=== PATIENT | female | born 1955 | race Caucasian/White ===

== ENCOUNTER 2020-06-25 23:51 | Inpatient (IN) | payer BC, OTHER, SELFPAY ==
[~2020-06-25] VITALS: Ht 154.9 cm; Wt 76.7 kg
[~2020-06-25 23:51] MED LIST: ESCI5TAB PO; POTASSIUM
[2020-06-25 23:55] VITALS: BP_SYST 130
--- NOTE | 2020-06-26 00:40 | NUR ---
LAB IN AMBULANCE BAY DRAWING LABS ON PATIENT.
--- NOTE | 2020-06-26 00:47 | NUR ---
Patient to ER bed 1 to gown for evaluation. Side rails up. Report given to Liz ADMAS.
[2020-06-26 00:59] LABS: BASOPHILS % (AUTO) 0.8 % (0.0-2.0); EOSINOPHILS # (AUTO) 0.1 K/uL (0.0-0.4); HEMATOCRIT 38.8 % (36-48); LYMPHOCYTES # (AUTO) 0.7 K/uL (1.0-5.5); LYMPHOCYTES % (AUTO) 12.8 % (20.5-51.5); MEAN CORPUSCULAR HEMOGLOBIN 30 pg (27-31); MEAN CORPUSCULAR HGB CONC 33 % (32-36); MEAN CORPUSCULAR VOLUME 90 fL (79.0-98.0); MONOCYTES # (AUTO) 0.5 K/uL (0.0-1.0); MONOCYTES % (AUTO) 8.7 % (1.7-9.3); NEUTROPHILS # (AUTO) 4.1 K/uL (1.8-7.7); NEUTROPHILS % (AUTO) 75.7 % (40.0-70.0); PLATELET COUNT (AUTO) 185 K/uL (130-430); RED BLOOD CELL COUNT(AUTO) 4.31 MIL/uL (4.2-6.2); WHITE BLOOD COUNT (AUTO) 5.4 K/uL (4.8-10.8)
--- NOTE | 2020-06-26 01:00 | NUR ---
Pt biba c/o hip pain x today. Pt reports picking up books and falling to on her L hip but reports pain to her R hip. Pt is AAOX3, pt rates pain 10/11. Denies any allergies. Unable to recall past medical history. Inability to bare weight and move to L side. Pt denies LOC, head injury, dizzness or neck injury.
--- NOTE | 2020-06-26 01:02 | NUR ---
RICKIE CALLED TO GET UPDATE ON PATIENT. HE WOULD LIKE A CALL ONCE RESULTS ARE BACK AND PLAN OF CARE IS KNOWN. NUMBER IS
--- NOTE | 2020-06-26 01:10 | NUR ---
ER at bedside examining patient.
[2020-06-26 01:13] LABS: CALCIUM 8.3 mg/dL (8.4-11.0); CREATININE 1.31 mg/dL (0.55-1.30); POTASSIUM 3.4 mmol/L (3.5-5.1)
[2020-06-26] MEDS ORDERED: MORPHINE 4 MG/ML INJ. SYRINGE IVP ONE ×2 (01:15→03:45)
[2020-06-26 01:19] LABS: ALBUMIN 3.6 g/dL (3.4-4.8); TOTAL BILIRUBIN 0.3 mg/dL (0.0-1.0)
--- NOTE | 2020-06-26 02:05 | NUR ---
COVID SWAB OBTAINED AND SENT
--- NOTE | 2020-06-26 03:03 | NUR ---
Patient to ER bed 2. Side rails up.
--- NOTE | 2020-06-26 03:30 | NUR ---
As per Shorty, pt has hx of seizures, but have been well controlled.
--- NOTE | 2020-06-26 03:40 | NUR ---
Medication reconciliation completed with information provided by Shorty via phone call. Any prior medication reconciliation on file was reviewed and corrected.
[2020-06-26] MEDS ORDERED: NOR10 PO (03:41)
[2020-06-26] MEDS ORDERED: LAMO200T52 PO (03:41)
[2020-06-26] MEDS ORDERED: OXYQ1POW MC (03:41)
[2020-06-26] MEDS ORDERED: LEVE500T9 PO (03:41)
--- NOTE | 2020-06-26 03:45 | NUR ---
Patient will be admitted to care of Dr Nieves. Admitted to medical surgical unit. Will go to room 100b. Belongings list completed. Complete and up to date summary report printed. SBAR report to be given at bedside with opportunity for questions.
--- NOTE | 2020-06-26 03:55 | NUR ---
Report given to Pricilla ADAMS for continuation of care.
--- NOTE | 2020-06-26 04:05 | NUR ---
ADMISSION NOTE Received patient from ER via gurney. Patient admitted with diagnosis of RIGHT HIP FRACTURE. Patient is awake, alert, oriented X 3. Patient oriented to hospital room, call light, toileting, pain management and safety-teach back done. Patient informed that DEBORA will be nurse and that their room number is 100A. Personal belongings checked and Belongings List documented. Call light within reach.
[2020-06-26 04:14] VITALS: BP_SYST 111
[2020-06-26] MEDS ORDERED: MORPHINE 4 MG/ML INJ. SYRINGE IVP PRN (04:15)
[2020-06-26] MEDS ORDERED: traMADol HCL HCL 50 MG TABLET (ULTRAM) PO PRN (04:15)
[2020-06-26] MEDS ORDERED: OXYCODONE/ACETAMINOPHEN 5-325 TABLET PO PRN (04:15)
[2020-06-26] MEDS: MORPHINE 4 MG/ML INJ. SYRINGE IVP PRN ×4 (04:29→20:43)
--- NOTE | 2020-06-26 04:30 | NUR ---
pt.received via the er-dept.pt.presents s/p fall home +rt.hip fx.pt.requested medication pain.jennifer;carburizing furnace operator rn administered morphine:3mg ivp.to re-assess the efficacy of the pain medication per pain med protocol.cath placed per jennifer/ashok hunter.urine return manifested.pt.repositioned.pt.oriented to room:call light/telephone.placed w/in access of the pt.
[2020-06-26] MEDS: D5NS 1,000 ML IV SCH ×2 (05:13→22:41)
--- NOTE | 2020-06-26 06:00 | NUR ---
pt.assessed.pt.presents quiescent affect;calm,resting.i have initiated the maintenance iv fluids via peripheral access:location rt.hand. schumacher cath intact;patent urine content present.pt.repositioned.call light/telephone placed w/in access of the pt.
--- NOTE | 2020-06-26 07:19 | NUR ---
Nutrition Update Selwyn Scale 16 noted. Pt admitted for Hip fracture Diet: NPO BMI: 31.9 kg/m2 RD to follow per nutrition care standards.
[2020-06-26 08:10] VITALS: BP_SYST 113
--- NOTE | 2020-06-26 08:10 | NUR ---
AM NOTES PT IN BED. A/OX4. C/O OF RT HIP PAIN 02/10. WILL GIVE PAIN MED ORDERED.RES EVEN AND UNLABORED . NOT IN ACUTE DISTRESS. IV RT HAND20 PATENT. NO S/S OF INFILTRATION NOTED.IVF INFUSING WELL.SAFETY AND FALL PRECAUTIONS IN PLACE. SEIZURES PRECAUTIONS IN PLACE .POC DISCUSSED WITH PT VERBALIZED UNDERSTANDING. WILL CONITNUE TO MONITTOR
[2020-06-26] MEDS ORDERED: ONDANSETRON HCL 4 MG/2 ML VIAL IVP PRN (09:00)
[2020-06-26] MEDS ORDERED: ZOLPIDEM TARTRATE 5 MG TABLET PO PRN (09:00)
[2020-06-26] MEDS ORDERED: ACETAMINOPHEN 500 MG TABLET PO PRN (09:00)
[2020-06-26] MEDS ORDERED: HYDROcodone/ACETAMIN 7.5-325 MG TAB PO PRN (09:00)
[2020-06-26] MEDS ORDERED: ESCITALOPRAM OXALATE 10 MG TABLET PO SCH (09:15)
--- NOTE | 2020-06-26 09:19 | NUR ---
CONSULTATION CALLED REASON FOR CONSULTATION:HIP FRACTURE WAS CONSULT CALLED?Y PERSON WHO WAS NOTIFIED:SHEBA CONSULTING PHYSICIAN:ERICK WONG REGIONAL COORDINATOR SPECIALTY:ORTHO REGIONAL COORDINATOR PHONE NUMBER:[phone] REQUESTING PHYSICIAN:RUBIO OLIVARES
[2020-06-26 09:48] LABS: PROTHROMBIN TIME 10.4 SECS (9.5-12.5)
--- NOTE | 2020-06-26 09:54 | NUR ---
DR POTTER DENIED THE ORTHO CONSULT AND ASKED ME TO CALL DR CONI RODARTE INSTEAD. CALLED THE OFFICE OF DR RODARTE AND GAVE THE REASON FOR THE CONSULT AND MESSAGE OF DR POTTER. SPOKE TO DAMIR
[2020-06-26 09:59] LABS: CALCIUM 7.6 mg/dL (8.4-11.0); CREATININE 1.14 mg/dL (0.55-1.30); POTASSIUM 4.6 mmol/L (3.5-5.1); TOTAL BILIRUBIN 0.2 mg/dL (0.0-1.0)
[2020-06-26 10:00] LABS: ALBUMIN 3.3 g/dL (3.4-4.8); PHOSPHORUS 3.8 mg/dL (2.7-4.5); THYROID STIMULATING HORMONE 4.01 uIu/mL (0.36-3.74)
[2020-06-26] MEDS ORDERED: CITALOPRAM HYDROBROMIDE 20 MG TABLET PO ONE (10:15)
[2020-06-26] MEDS ORDERED: amLODIPine BESYLATE 10 MG TABLET PO ONE (10:15)
[2020-06-26 10:29] LABS: BILIRUBIN,URINE NEGATIVE (NEGATIVE); BLOOD, URINE NEGATIVE (NEGATIVE); CLARITY/URINE CLEAR (CLEAR); COLOR,URINE YELLOW (YELLOW); GLUCOSE,URINE NEGATIVE (NEGATIVE); KETONES,URINE NEGATIVE (NEGATIVE); LEUKOCYTE ESTERASE ,URINE NEGATIVE (NEGATIVE); NITRITE, URINE NEGATIVE (NEGATIVE); PH,URINE 5.5 (5.0-8.0); PROTEIN URINE NEGATIVE (NEGATIVE); UROBILINOGEN,URINE 0.2 (0.2-1.0)
[2020-06-26] MEDS ORDERED: levETIRAcetam 500 MG TABLET PO ONE (10:30)
--- NOTE | 2020-06-26 10:57 | NUR ---
PT order has been received. Chart review indicates patient is awaiting an Ortho consult. Therefore, Physical Therapy evaluation will be held until guidance from the Orthopedist.
[2020-06-26 11:11] LABS: BARBITURATE, URINE NEGATIVE (NEG <=200); BENZODIAZEPINE, URINE NEGATIVE (NEG <=150); CANNABINOID, URINE NEGATIVE (NEG <=50); COCAINE, URINE NEGATIVE (NEG <=150); METHAMPHETAMINES SCREEN,URINE NEGATIVE (NEG <=500); OPIATE, URINE POSITIVE (NEG <=100); PHENCYCLIDINE SCREEN,URINE NEGATIVE (NEG <=25); UR TRICYCLIC ANTIDEPRESSANTS NEGATIVE (NEG <=300); URINE AMPHETAMINE NEGATIVE (NEG <=500); URINE METHADONE NEGATIVE (NEG <=200); URINE OXYCODONE SCREEN NEGATIVE (NEG <=100); URINE PROPOXYPHENE SCREEN NEGATIVE (NEG <=300)
--- NOTE | 2020-06-26 11:19 | NUR ---
PAGED PAGED RUBIO OLIVARES AT [phone] SPOKE WITH EXCHANGE.
--- NOTE | 2020-06-26 11:52 | NUR ---
ROUNDS PT STABLE. DENIES ANY PAIN AT THIS TIME.IVF INFUSING WELL. SEEN BY DR GUILLERMO.
[2020-06-26] MEDS: PANTOPRAZOLE SODIUM 40 MG TAB PO SCH (11:54)
[2020-06-26 11:57] VITALS: BP_SYST 118
--- NOTE | 2020-06-26 13:56 | NUR ---
PAGED PAGED ROBYN OLIVARES AT [phone] SPOKE WITH TIM.
--- NOTE | 2020-06-26 14:13 | NUR ---
C/O OF PAIN PT C/O OF RT HIP PAIN 03/13. MEDICATED WITH MORPHINE ORDER SEE EMAR. IVF INFUIANG WELL NOT IN ACUTE DISTRESS. NEEDS ATTENDED
[2020-06-26 18:01] VITALS: BP_SYST 116
--- NOTE | 2020-06-26 19:00 | NUR ---
CLOSING NOTES PT STABLE . NOT IN ACUTE DISTRESS. IVF INFUSING WELL. WAITING FOR DR IRBY TO SEE PT.. REPORT GIVEN TO NIGHT NURSE
--- NOTE | 2020-06-26 19:20 | NUR ---
Opening note Received patient awake, AOx4, resting in bed, no distress. Non labored breathing on room air. IVF infusing via IV to right hand. Bed is locked in lowest position, side rails up 3x and bed alarm on.
[2020-06-26 20:00] VITALS: BP_SYST 141
[2020-06-26] MEDS: levETIRAcetam 500 MG TABLET PO SCH (20:39)
--- NOTE | 2020-06-26 20:39 | NUR ---
Morphine, Zofran Patient reporting severe pain 8/10 to right hip and knee. Administered Morphine for severe pain and Zofran for mild nausea as ordered. Due medication, Keppra tablet given with small sip of water. Call light w/in reach, will continue to monitor.
[2020-06-26] MEDS: DOCUSATE SODIUM 100 MG/10 ML UDC PO PRN (22:41)
--- NOTE | 2020-06-26 22:41 | NUR ---
IVF, Colace Patient's IVF bag empty and hung new bag of D5-NS and infusing as ordered at 60 ml/hr, no infiltration noted; tolerating. Patient reports last BM was Friday and though she is presently NPO, she is also receiving Morphine for pain; I explained side effects are constipation and she agreed to take a dose of Colace.
[2020-06-27 00:09] VITALS: BP_SYST 135
--- NOTE | 2020-06-27 00:10 | NUR ---
rounds VSS, presently is comfortable, she denies pain and doesn't want to reposition. She only wanted pillow on head adjusted and raised. Call light w/in reach, will continue to monitor.
--- NOTE | 2020-06-27 02:00 | NUR ---
Patient is awake She is light sleeper and presently denies pain and does not want pain med. She insists she is comfortable and refuses to reposition. Safety precautions maintained and call light w/in reach.
[2020-06-27] MEDS: MORPHINE 4 MG/ML INJ. SYRINGE IVP PRN (04:10)
--- NOTE | 2020-06-27 04:15 | NUR ---
c/o Patient reporting severe pain 7/10 to right hip, leg, and knee. Administered Morphine for severe pain ordered. She is requesting a sip of water and informed MD said can have small sip of water with med, though presently in nothing by mouth. I gave her oral care kit; to moisten mouth and she reports it helped. Call light w/in reach, will continue to monitor.
--- NOTE | 2020-06-27 06:30 | NUR ---
CLOSING NOTE Patient resting, awake, no distress, pain is tolerable. IVF infusing well. She requested cell phone and it is with her. Safety precautions in place. Needs met throughout shift, will endorse care.
--- NOTE | 2020-06-27 07:30 | NUR ---
OPENING NOTES: RECEIVED PATIENT FROM RAYON CONER NURSE. PATIENT IS AWAKE AND ALERT x4 LAYING DOWN IN BED. PATIENT IS TOLERATING OXYGEN ON ROOM AIR WITH NO SIGNS OF DISTRESS OR SHORTNESS OF BREATH NOTED. IV SITE IS PATENT WITH NO SIGNS OF INFILTRATION NOTED AND RUNNING FLUIDS ORDERED. PATIENT STATES SHE HAS PAIN 4/10 BUT IS TOLERABLE AT THE MOMENT. INFORMED PATIENT TO LET ME KNOW WHEN IT GETS TOO EXTREME. KULKARNI CATHETER INTACT AND DRAINING BY GRAVITY. PATIENT REFUSES TO TURN SIDE TO SIDE. PATIENT IN STABLE CONDITION. SAFETY, FALL, ASPIRATION, AND SEIZURE PRECAUTIONS ARE IN PLACE. BED LOCKED IN LOWEST POSITION WITH CALL LIGHT IN REACH. WILL CONTINUE TO MONITOR PATIENT FOR ANY CHANGES.
[2020-06-27 08:08] VITALS: BP_SYST 133
[2020-06-27 08:10] LABS: BASOPHILS % (AUTO) 0.3 % (0.0-2.0); EOSINOPHILS % (AUTO) 0.7 % (0.0-4.0); HEMATOCRIT 38.9 % (36-48); LYMPHOCYTES # (AUTO) 0.4 K/uL (1.0-5.5); LYMPHOCYTES % (AUTO) 6.6 % (20.5-51.5); MEAN CORPUSCULAR HEMOGLOBIN 30 pg (27-31); MEAN CORPUSCULAR HGB CONC 33 % (32-36); MEAN CORPUSCULAR VOLUME 90 fL (79.0-98.0); MONOCYTES # (AUTO) 0.7 K/uL (0.0-1.0); MONOCYTES % (AUTO) 10.4 % (1.7-9.3); NEUTROPHILS # (AUTO) 5.4 K/uL (1.8-7.7); PLATELET COUNT (AUTO) 180 K/uL (130-430); RED BLOOD CELL COUNT(AUTO) 4.34 MIL/uL (4.2-6.2); RED CELL DISTRIBUTION WIDTH 13.8 % (9.0-15.0); WHITE BLOOD COUNT (AUTO) 6.6 K/uL (4.8-10.8)
[2020-06-27 08:15] LABS: CALCIUM 7.7 mg/dL (8.4-11.0); CREATININE 0.81 mg/dL (0.55-1.30); POTASSIUM 3.3 mmol/L (3.5-5.1)
[2020-06-27] MEDS: levETIRAcetam 500 MG TABLET PO SCH ×2 (08:30→21:53)
[2020-06-27] MEDS: POTASSIUM CHLORIDE 20 MEQ TAB.PRT.SR PO PRN (08:30)
[2020-06-27] MEDS: HYDROXYCHLOROQUINE SULFATE 200 MG TABLET PO SCH (08:30)
[2020-06-27] MEDS: amLODIPine BESYLATE 10 MG TABLET PO SCH (08:32)
[2020-06-27] MEDS: CITALOPRAM HYDROBROMIDE 20 MG TABLET PO SCH (08:32)
[2020-06-27] MEDS: PANTOPRAZOLE SODIUM 40 MG TAB PO SCH (08:32)
--- NOTE | 2020-06-27 10:10 | NUR ---
RN ROUNDS: PATIENT IS AWAKE AND ALERT x4 LAYING DOWN IN BED. PATIENT IS TOLERATING OXYGEN ON ROOM AIR WITH NO SIGNS OF DISTRESS OR SHORTNESS OF BREATH NOTED. IV SITE IS PATENT WITH NO SIGNS OF INFILTRATION NOTED AND RUNNING FLUIDS ORDERED. PATIENT IN STABLE CONDITION. WILL CONTINUE TO MONITOR PATIENT FOR ANY CHANGES.
[2020-06-27 12:30] VITALS: BP_SYST 143
[2020-06-27] MEDS: D5NS 1,000 ML IV SCH (12:31)
--- NOTE | 2020-06-27 14:24 | NUR ---
RN ROUNDS: PATIENT IS AWAKE AND ALERT X4, PATIENT IS TOLERATED OXYGEN ON ROOM AIR. NO SIGN OF DISTRESS NOTED. IV INTACT AND RUNNING FLUIDS. KULKARNI INTACT DRAINING BY GRAVITY. PATIENT IN STABLE CONDITION AND READY FOR SURGERY. WILL CONTINUE TO MONITOR PATIENT FOR ANY CHANGES.
[2020-06-27] MEDS ORDERED: POLYMYXIN 500,000/BACIT.10,000 UNITS in NS IRR 1 L IR ONE (14:57)
--- NOTE | 2020-06-27 15:10 | NUR ---
SURGERY: PATIENT TAKEN TO OR WITH BRYAN ANDRES. PATIENT IN STABLE CONDITION. WILL AWAIT PATIENT'S RETURN TO THE FLOOR.
--- NOTE | 2020-06-27 16:30 | NUR ---
RN ROUNDS: PATIENT IS STILL IN OR. WILL WAIT FOR PATIENT ARRIVAL BACK TO UNIT.
[2020-06-27] MEDS ORDERED: HYDROmorphone 2 MG/ML VIAL IVP PRN ×2 (17:00)
[2020-06-27] MEDS ORDERED: LR 1,000 ML IV SCH (17:00)
[2020-06-27] MEDS ORDERED: MEPERIDINE HCL/PF 25 MG/ML DISP.SYRIN IVP PRN (17:00)
[2020-06-27] MEDS ORDERED: HYDROmorphone 1 MG INJ. 1 MG/ML AMPUL IVP PRN (17:00)
[2020-06-27] MEDS ORDERED: NALOXONE HCL 0.4 MG/ML AMP (NARCAN) IVP PRN (17:00)
[2020-06-27 17:36] VITALS: BP_SYST 143
[2020-06-27] MEDS ORDERED: MIDAZOLAM HCL 5 MG/ML VIAL (VERSED) IV ONE (17:50)
[2020-06-27] MEDS ORDERED: fentaNYL CITRATE/PF 100 MCG/2 ML AMP ONE (17:50)
[2020-06-27] MEDS ORDERED: DEXAMETHASONE SOD PHOSPHATE 4 MG/ML VIAL ONE (17:50)
[2020-06-27] MEDS ORDERED: LR 1,000 ML IV.SOLN IV ONE (17:50)
[2020-06-27] MEDS ORDERED: GLYCOPYRROLATE 0.2 MG/ML VIAL ONE (17:50)
[2020-06-27] MEDS ORDERED: CEFAZOLIN 2 GM IVPB PREMIX 50 ML IV ONE (17:50)
[2020-06-27] MEDS ORDERED: ONDANSETRON HCL 4 MG/2 ML VIAL ONE (17:50)
[2020-06-27] MEDS ORDERED: PROPOFOL 200MG/ 20ML VIAL (DIPRIVAN) IV ONE (17:50)
[2020-06-27] MEDS ORDERED: SUCCINYLCHOLINE CHLORIDE 20 MG/ML(QUELICIN) ONE (17:50)
[2020-06-27] MEDS ORDERED: SEVOFLURANE 15 MIN GAS INH ONE (17:50)
[2020-06-27] MEDS ORDERED: ROCURONIUM BROMIDE 10 MG/ML (ZEMURON) ONE (17:50)
[2020-06-27] MEDS ORDERED: METOCLOPRAMIDE HCL 10 MG/2 ML VIAL ONE (17:50)
[2020-06-27] MEDS ORDERED: NEOSTIGMINE METHYLSULFATE 1 MG/ML, 10 ML VIAL ONE (17:50)
[2020-06-27 18:50] VITALS: BP_SYST 143
--- NOTE | 2020-06-27 18:50 | NUR ---
BACK FROM SURGERY/CLOSING NOTES: PATIENT IS AWAKE AND ALERT x4 LAYING DOWN IN BED. VITALS ARE STABLE. PATIENT IS TOLERATING OXYGEN ON ROOM AIR WITH NO SIGNS OF DISTRESS OR SHORTNESS OF BREATH NOTED. IV SITE IS PATENT WITH NO SIGNS OF INFILTRATION NOTED AND RUNNING LACTATED RINGERS FROM OR. PATIENT DENIES ANY PAIN AT THE MOMENT. SCD'S ARE IN PLACE. KULKARNI CATHETER INTACT AND DRAINING BY GRAVITY. SURGICAL INCISION COVERED WITH MINIMAL RED DRAINAGE NOTED. PATIENT IN STABLE CONDITION. SAFETY, FALL, ASPIRATION AND SEIZURE PRECAUTIONS REMAINED IN PLACE THROUGHOUT THE SHIFT. BED LOCKED IN LOWEST POSITION WITH CALL LIGHT IN REACH. WILL ENDORSE PATIENT CARE TO ONCOMING PHARMACY TECHNICIAN NURSE.
--- NOTE | 2020-06-27 19:15 | NUR ---
Opening note Received patient resting in bed w/eyes closed. No distress. Non labored breathing on room air. IVF infusing via IV to right hand. Bed is locked in lowest position, side rails up 3x and bed alarm on.
[2020-06-27 20:00] VITALS: BP_SYST 112
--- NOTE | 2020-06-27 21:53 | NUR ---
meds due medication, Keppra given. She swallowed w/out difficulty. VSS, and denies pain, will continue to monitor.
[2020-06-28 01:18] VITALS: BP_SYST 110
--- NOTE | 2020-06-28 04:10 | NUR ---
rounds Patient resting w/ eyes closed; easily aroused. Denies pain. She was repositioned and tolerated; placed ice packs to surgical incision site.
[2020-06-28] MEDS: D5NS 1,000 ML IV SCH (06:00)
[2020-06-28 06:19] LABS: HEMATOCRIT 26.3 % (36-48); HEMOGLOBIN 8.9 g/dL (12.0-16.0); LYMPHOCYTES # (AUTO) 0.4 K/uL (1.0-5.5); LYMPHOCYTES % (AUTO) 4.3 % (20.5-51.5); MEAN CORPUSCULAR HEMOGLOBIN 30 pg (27-31); MEAN CORPUSCULAR HGB CONC 34 % (32-36); MEAN CORPUSCULAR VOLUME 89 fL (79.0-98.0); MONOCYTES # (AUTO) 1.1 K/uL (0.0-1.0); NEUTROPHILS # (AUTO) 6.9 K/uL (1.8-7.7); NEUTROPHILS % (AUTO) 82.7 % (40.0-70.0); PLATELET COUNT (AUTO) 157 K/uL (130-430); RED BLOOD CELL COUNT(AUTO) 2.94 MIL/uL (4.2-6.2); RED CELL DISTRIBUTION WIDTH 13.6 % (9.0-15.0); WHITE BLOOD COUNT (AUTO) 8.3 K/uL (4.8-10.8)
--- NOTE | 2020-06-28 06:40 | NUR ---
CLOSING NOTE Patient resting, awake, no distress, denies pain and is not requestin pain med. IVF infusing well. Safety precautions in place. Needs met throughout shift, will endorse care.
[2020-06-28 06:43] LABS: CREATININE 0.94 mg/dL (0.55-1.30); POTASSIUM 3.9 mmol/L (3.5-5.1)
[2020-06-28 07:13] LABS: CALCIUM 6.8 mg/dL (8.4-11.0)
--- NOTE | 2020-06-28 07:41 | NUR ---
CRITICAL LAB Received call from [employer] [employer]; Calcium is 6.8, has been paged. BRYAN Morel received patiene and is aware of critical lab and that paged.
--- NOTE | 2020-06-28 07:42 | NUR ---
PAGED PAGED [facility] AT [phone] LEFT A VOICEMAIL.
[2020-06-28 07:58] VITALS: BP_SYST 130
--- NOTE | 2020-06-28 08:21 | NUR ---
MD MIO ANTUNEZ CALLED AT SPOKE WITH DR.JANDIAL DOUGLAS RAJNISH BRANCH MANAGER.
--- NOTE | 2020-06-28 08:32 | NUR ---
NOtified Dr. Lema of critical Ca2+ level of 6.8. NO orders received. Monitoring continued.
[2020-06-28] MEDS: HYDROXYCHLOROQUINE SULFATE 200 MG TABLET PO SCH (08:52)
[2020-06-28] MEDS: levETIRAcetam 500 MG TABLET PO SCH ×2 (08:53→20:15)
[2020-06-28] MEDS: amLODIPine BESYLATE 10 MG TABLET PO SCH (08:53)
[2020-06-28] MEDS: PANTOPRAZOLE SODIUM 40 MG TAB PO SCH (08:53)
[2020-06-28] MEDS: CITALOPRAM HYDROBROMIDE 20 MG TABLET PO SCH (08:54)
--- NOTE | 2020-06-28 10:02 | NUR ---
Pt medicated for aching right hip pain of level 8/10. Pt Working with WILLY Hogue at this time. Awaiting recommendations. Will reassess.
[2020-06-28 12:05] VITALS: BP_SYST 105
[2020-06-28 16:10] VITALS: BP_SYST 114
[2020-06-28] MEDS: MORPHINE 4 MG/ML INJ. SYRINGE IVP PRN (17:16)
[2020-06-28 19:00] VITALS: BP_SYST 119
--- NOTE | 2020-06-28 19:15 | NUR ---
change of shift.pt.presents quiescent affect;calm,resting viewing tv programming.pt.presents s/p surgery;rt.hip;orif.dsg assessed intact. pt.presents iv access intact iv fluids infusing.pt.presents schumacher cath intact;patent urine content present.general status stable.respiratory status stable;unlabored@room air.call light/telephone w/in access of the pt.
--- NOTE | 2020-06-28 19:30 | NUR ---
Pt remains A/O x4, but forgetful at times. Reinforced teachings frequently. NO SZ activity noted or reported during shift. SZ precautions maintained during shift. No adverse events during shift. Pt safety maintained during shift.
[2020-06-28 20:00] VITALS: BP_SYST 119
--- NOTE | 2020-06-28 20:00 | NUR ---
pt.assessed.v/s assessed values w/in normal limits.no c/o pain,nausea.iv access intact;patent iv fluids infusing.schumacher cath intact;patent urine content present.pt.assessed for cleanliness.pt.repositioned.rt.hip dsg assessed intact.pt.capable to move toes:rt.foot x5 digits.foot tactile;warm. pt.capable to extend/flex rt.leg.general status stable.respiratory status stable;unlabored.call light/telephone placed w/in access of the pt.
--- NOTE | 2020-06-28 21:00 | NUR ---
2100pmedications administered.no c/o pain,nausea.no requests posited @this hour.
[2020-06-28] MEDS ORDERED: BENZOCAINE/MENTHOL 1 EACH LOZENGE MM PRN (22:00)
--- NOTE | 2020-06-28 22:00 | NUR ---
pt.assessed.pt.requested medication:sore throat. paged/returned the page.i apprised of pt's requests: medication:sore throat. ordered cepacol;throat lozenge;po q-4hrs/prn.i have administered cepacol lozenge.pt.requested medication;sleep.i administered ambien;5mg po.pt.requested water.i provided the fresh water.iv access intact;patent iv fluids infusing.schumacher cath intact;patent urine content present.pt.assessed for cleanliness.pt. repositioned.no c/o pain,nausea.general status stable;respiratory status stable;unlabored.call light/telephone placed w/in access of the pt.
--- NOTE | 2020-06-29 | NUR ---
pt.assessed.v/s assessed values w/in normal limits.pt.presents quiescent affect;calm,somnolent.pt.assessed for cleanliness. pt.repositioned.iv access intact;patent iv fluids infusing.schumacher cath intact;patent urine content present.no c/o,pain,nausea. no requests posited@this hour.general status stable.respiratory status stable;unlabored.call light/telephone placed w/in access of the pt.
[2020-06-29 01:28] VITALS: BP_SYST 114
--- NOTE | 2020-06-29 02:00 | NUR ---
pt.assessed.pt.presents quiescent affect;calm,somnolent.per flacc pain mgx pt.absent facial grimaces/body posturing.iv access intact;patent iv fluids infusing.schumacher cath intact;patent urine content present.pt.assessed for cleanliness.pt.repositioned.call light/telephone placed w/in access of the pt.
--- NOTE | 2020-06-29 04:00 | NUR ---
pt.assessed.pt.presents quiescent affect;calm.somnolent.per.flacc pain mgx pt.absent facial grimaces/body posturing. schumacher cath intact;patent urine content present.iv access intact;patent.iv fluids d/c per..i have converted the iv access locked status.pt.assessed for cleanliness.pt.repositioned.general status stable.respiratory status stable;unlabored. call light/telephone placed w/in access of the pt.
--- NOTE | 2020-06-29 06:25 | NUR ---
pt.assessed.pt.presents quiescent affect;calm,resting no c/o pain,nausea.no requests posited@this hour.i have d/c the schumacher cath per .order.re-iterated to the pt.to call nsg for assistance w bedpan.pt.assessed for cleanliness.pt.repositioned.call light/telephone placed w/in access of the pt.
[2020-06-29 06:41] LABS: BASOPHILS % (AUTO) 0.7 % (0.0-2.0); EOSINOPHILS # (AUTO) 0.1 K/uL (0.0-0.4); EOSINOPHILS % (AUTO) 1.8 % (0.0-4.0); HEMATOCRIT 23.8 % (36-48); LYMPHOCYTES # (AUTO) 0.6 K/uL (1.0-5.5); LYMPHOCYTES % (AUTO) 10.5 % (20.5-51.5); MEAN CORPUSCULAR HEMOGLOBIN 30 pg (27-31); MEAN CORPUSCULAR HGB CONC 34 % (32-36); MEAN CORPUSCULAR VOLUME 90 fL (79.0-98.0); MONOCYTES # (AUTO) 0.7 K/uL (0.0-1.0); MONOCYTES % (AUTO) 12.5 % (1.7-9.3); NEUTROPHILS # (AUTO) 4.2 K/uL (1.8-7.7); NEUTROPHILS % (AUTO) 74.5 % (40.0-70.0); PLATELET COUNT (AUTO) 139 K/uL (130-430); RED BLOOD CELL COUNT(AUTO) 2.64 MIL/uL (4.2-6.2); RED CELL DISTRIBUTION WIDTH 13.9 % (9.0-15.0); WHITE BLOOD COUNT (AUTO) 5.6 K/uL (4.8-10.8)
[2020-06-29 06:45] LABS: CALCIUM 7.1 mg/dL (8.4-11.0); CREATININE 0.88 mg/dL (0.55-1.30); POTASSIUM 3.4 mmol/L (3.5-5.1)
[2020-06-29 07:59] VITALS: BP_SYST 129
--- NOTE | 2020-06-29 09:54 | NUR ---
HCP/[facility] HELMET HAT PUNCHER REVIEW COORDINATOR MS NANCECARL MONTERO WAS CALLED, RE: SNF PLACEMENT.
[2020-06-29 11:36] VITALS: BP_SYST 144
[2020-06-29] MEDS: PANTOPRAZOLE SODIUM 40 MG TAB PO SCH (11:37)
[2020-06-29] MEDS: HYDROXYCHLOROQUINE SULFATE 200 MG TABLET PO SCH (11:37)
[2020-06-29] MEDS: CITALOPRAM HYDROBROMIDE 20 MG TABLET PO SCH (11:37)
[2020-06-29] MEDS: amLODIPine BESYLATE 10 MG TABLET PO SCH (11:38)
[2020-06-29] MEDS: levETIRAcetam 500 MG TABLET PO SCH (11:38)
[2020-06-29] MEDS: POTASSIUM CHLORIDE 20 MEQ TAB.PRT.SR PO PRN (14:14)
--- NOTE | 2020-06-29 14:35 | NUR ---
HCP/[facility] CM MS DAKOTAH MONTERO GAVE ME SNF INFO -- [facility] [address]. BLS TRANSPORT WILL BE [facility], [facility] TIME 1600. SPOKE TO ILEANA. (AUTH # IS [id number]) GAVE MR RICKIE GORMAN, A CALL RE: TO INFORM HIM THAT PT IS TRANSFERING TO [facility] FOR REHAB, WITH [facility]ING PT AT 1600. LEFT A VOICE MESSAGE.
[2020-06-29 15:30] VITALS: BP_SYST 128
[2020-06-29] MEDS: DOCUSATE SODIUM 100 MG/10 ML UDC PO PRN (16:16)
[2020-06-29 16:24] VITALS: BP_SYST 128
--- NOTE | 2020-06-29 16:30 | NUR ---
Discharge instructions given to pt. SBAR report given to BRYAN Gao (at [facility]) for continuity of care. SBAR report also given to global account manager for transport. NO adverse events during shift. NO SZ activity noted or reported during shift. Pt safety maintained during shift. Pt safely discharged.
[2020-06-30] MEDS ORDERED: LAMOTRIGINE 200 MG PO SCH (09:00)
== END 2020-06-29 16:40 | DRG 480 ==
LOC: SED 23:51 → SMU 06-26 02:38
PROVIDERS: ADMIT Family Medicine; ATTEND Internal Medicine Hospice and Palliative Medicine
PROC: 0QS606Z Reposition Right Upper Femur with Intramedullary Internal Fixation Device, Open Approach (ICD-10-PCS; principal; 2020-06-26)
DX: S72.001A Fracture of unspecified part of neck of right femur, initial encounter for closed fracture (principal); N17.0 Acute kidney failure with tubular necrosis; E44.1 Mild protein-calorie malnutrition; E03.9 Hypothyroidism, unspecified; E86.0 Dehydration; E87.6 Hypokalemia; F32.9 Major depressive disorder, single episode, unspecified; G40.909 Epilepsy, unspecified, not intractable, without status epilepticus; I10 Essential (primary) hypertension; M32.9 Systemic lupus erythematosus, unspecified; K59.00 Constipation, unspecified; K21.9 Gastro-esophageal reflux disease without esophagitis; W19.XXXA Unspecified fall, initial encounter; Y92.009 Unspecified place in unspecified non-institutional (private) residence as the place of occurrence of the external cause; Y93.89 Activity, other specified; Z68.31 Body mass index [BMI] 31.0-31.9, adult; Y99.8 Other external cause status
CPT/HCPCS: 36415; 72170-TC; 73502; 76000; 80048; 80053; 80061; 80307; 81003; 82150-TC; 83036; 83605; 83690-TC; 83735-TC; 83880; 84100-TC; 84439; 84443-TC; 84484; 85025; 85610-TC; 85730-TC; 86886; 86900; 86901; 87081; 93005; 96374; 97163; 99285; C1713; J0330; J0690; J1100; J2250; J2270; J2405; J2704; J2710; J2765; J3010; J3490; J7120